=== PATIENT | male | born 1955 | race Hispanic/Latino ===

== ENCOUNTER 2021-06-28 19:41 | Inpatient (IN) | payer MEDICARE, OTHER ==
[~2021-06-28] VITALS: Ht 185.4 cm; Wt 79.1 kg
[2021-06-28 20:02] LABS: ABG BASE EXCESS -2.6 mmol/L (-2.0-3.0); ABG HCO3 19.3 mmol/L (21.0-28.0); ABG OXYGEN SATURATION 93.9 % (95.0-99.0); ABG PCO2 25 mmHg (35-48)
[2021-06-28 20:20] LABS: BASOPHILS % (AUTO) 0.1 % (0.0-5.0); HEMATOCRIT 28.4 % (42-54); LYMPHOCYTES % (AUTO) 2.9 % (21.0-51.0); MEAN CORPUSCULAR HEMOGLOBIN 31.1 pg (27.0-33.0); MEAN CORPUSCULAR HGB CONC 34.9 g/dL (32.0-36.0); MEAN CORPUSCULAR VOLUME 89.3 fL (79-99); NEUTROPHILS % (AUTO) 89.3 % (40.0-77.0); PLATELET COUNT (AUTO) 56 K/uL (130-400); RED BLOOD CELL COUNT(AUTO) 3.18 MIL/uL (4.50-6.20); WHITE BLOOD COUNT (AUTO) 14.1 K/uL (4.8-10.8)
[2021-06-28] MEDS ORDERED: ZOSYN 3.375GM +NS 50ML IV ONE (20:30)
[2021-06-28] MEDS ORDERED: TETANUS/DIPHTHERIA TOXOID [ADULT] 0.5 ML VIAL IM ONE (20:30)
[2021-06-28 20:38] LABS: B-TYPE NATRIURETIC PEPTIDE 255 pg/mL (0-100)
[2021-06-28 20:48] LABS: APPEARANCE,URINE Clear (CLEAR); BILIRUBIN,URINE Small (NEGATIVE); COLOR,URINE Dark Yellow (YELLOW); GLUCOSE, URINE (UA) Negative (NEGATIVE); KETONES,URINE Negative (NEGATIVE); LEUKOCYTE ESTERASE ,URINE Small (NEGATIVE); NITRATE,URINE Negative (NEGATIVE); OCCULT BLOOD,URINE Large (NEGATIVE); PH,URINE 5.5 (5.0-8.0); PROTEIN,URINE POS 1+ mg/dL (NEGATIVE)
[2021-06-28 20:53] LABS: PLATELET MORPHOLOGY COMMENT DECREASED
[2021-06-28 20:54] LABS: CARBON DIOXIDE 24 mmol/L (21-32); CHLORIDE 103 mmol/L (101-111); CREATININE 1.3 mg/dL (0.5-1.5); GLOMERULAR FILTR. RATE CALC 59 mL/min (>60); GLUCOSE,RANDOM 124 mg/dL (70-105); POTASSIUM 3.1 mmol/L (3.5-5.1); SODIUM SERUM 136 mmol/L (136-145); UREA NITROGEN, BLOOD 21 mg/dL (7-18)
[2021-06-28 20:56] LABS: AMPHET/METH SCREEN,URINE NEGATIVE (NEGATIVE); BARBITURATE SCREEN, URINE NEGATIVE (NEGATIVE); BENZODIAZEPINES SCREEN,URINE NEGATIVE (NEGATIVE); CANNABINOID SCREEN,URINE NEGATIVE (NEGATIVE); COCAINE SCREEN,URINE POSITIVE (NEGATIVE); OPIATE SCREEN,URINE NEGATIVE (NEGATIVE); PHENCYCLIDINE SCREEN,URINE NEGATIVE (NEGATIVE)
[2021-06-28 21:02] LABS: BACTERIA,URINE Few /HPF (None Seen); SQUAMOUS EPITHELIAL CELL,UR Few /HPF (0-2)
[2021-06-28 21:04] LABS: TRANSITIONAL EPI CELLS,URINE Rare /HPF (None Seen)
[2021-06-28 21:09] LABS: ALANINE AMINOTRANSFERASE 21 U/L (12-78); ALBUMIN 2.5 g/dL (3.5-5.0); ALCOHOL, BLOOD 4 mg/dL (0-10); AMMONIA 30 umol/L (11-32); ASPARTATE AMINOTRANSFERASE 35 U/L (10-37); BILIRUBIN,TOTAL 3.6 mg/dL (0.2-1.0); TOTAL PROTEIN, SERUM 6.7 g/dL (6.0-8.3)
[2021-06-28 21:18] LABS: ACETAMINOPHEN < 1 mcg/mL (10-29); SALICYLATE < 2.8 mg/dL (2.8-20.0)
[2021-06-28] MEDS ORDERED: MORPHINE 4 MG SYG IV PRN (23:30)
[2021-06-28] MEDS ORDERED: PANTOPRAZOLE 40 MG/VIAL IVP ONE (23:30)
[2021-06-28] MEDS ORDERED: POTASSIUM CHLORIDE 20MEQ/100ML 100 ML IV PRN (23:30)
[2021-06-28] MEDS ORDERED: ONDANSETRON 4MG INJ IV PRN (23:30)
[2021-06-28] MEDS: 0.9%NACL 1000ML 1,000 ML IV SCH (23:30)
[2021-06-28] MEDS ORDERED: HYDROCODONE/ACETAMINOPHEN 5/325 MG TAB PO PRN (23:30)
[2021-06-28] MEDS ORDERED: 0.9%NACL 1000ML 2,397 ML IV ONE (23:30)
[2021-06-28] MEDS ORDERED: LIDOCAINE HCL-MPF 1% 2ML VIAL IV PRN (23:30)
[2021-06-28] MEDS ORDERED: 0.9%NACL 1000ML 1,000 ML IV ONE (23:30)
[2021-06-28] MEDS: ACETAMINOPHEN 325 MG TAB PO PRN (23:45)
[2021-06-28] MEDS: POTASSIUM CHLORIDE 10% ELIXIR 20 MEQ/15 ML UDCUP PO PRN (23:56)
[2021-06-29] MEDS: IPRATROPIUM/ALBUTEROL SULFATE 3 ML SOLUTION IH SCH ×5 (00:04→23:28)
[2021-06-29] MEDS: KCL 20 MEQ ERTAB PO PRN ×2 (02:20→04:01)
[2021-06-29] MEDS: ZOSYN 3.375GM+NS 50ML 50 ML IV SCH ×2 (05:06→13:00)
[2021-06-29 05:29] LABS: BASOPHILS % (AUTO) 0.1 % (0.0-5.0); HEMATOCRIT 27.5 % (42-54); LYMPHOCYTES % (AUTO) 4.5 % (21.0-51.0); MEAN CORPUSCULAR HEMOGLOBIN 30.2 pg (27.0-33.0); MEAN CORPUSCULAR HGB CONC 32.7 g/dL (32.0-36.0); MEAN CORPUSCULAR VOLUME 92.3 fL (79-99); MONOCYTES % (AUTO) 6.1 % (3.0-13.0); NEUTROPHILS % (AUTO) 88.6 % (40.0-77.0); PLATELET COUNT (AUTO) 46 K/uL (130-400); RED BLOOD CELL COUNT(AUTO) 2.98 MIL/uL (4.50-6.20); RED CELL DISTRIBUTION WIDTH 16.7 % (11.0-15.5); WHITE BLOOD COUNT (AUTO) 10.6 K/uL (4.8-10.8)
[2021-06-29 05:57] LABS: POTASSIUM 3.5 mmol/L (3.5-5.1)
[2021-06-29 06:48] LABS: CREATININE 1.2 mg/dL (0.5-1.5)
[2021-06-29 07:03] LABS: ALBUMIN 2.1 g/dL (3.5-5.0); BILIRUBIN,TOTAL 2.7 mg/dL (0.2-1.0)
[2021-06-29] MEDS: 0.9%NACL 1000ML 1,000 ML IV SCH (08:46)
[2021-06-29] MEDS: PANTOPRAZOLE 40 MG/VIAL IVP SCH (08:46)
[2021-06-29] MEDS ORDERED: ENOXAPARIN SODIUM 40 MG/0.4 ML SYRINGE SQ SCH (09:00)
[2021-06-29] MEDS ORDERED: LORAZEPAM 2 MG/ML 1 ML VIAL ONE (10:17)
[2021-06-29] MEDS ORDERED: LORAZEPAM 2 MG/ML 1 ML VIAL IVP ONE (10:30)
[2021-06-29] MEDS ORDERED: PHARMACY COMMUNICATION MISC PRN (10:30)
[2021-06-29] MEDS: THIAMINE HCL 100 MG, FOLIC ACID 1 MG, M.V.I. IV [ADULT] 10 ML in 0.9%NACL 1000ML 1,000 ML IV SCH (10:44)
[2021-06-29 11:15] VITALS: BP 108/53
[2021-06-29] MEDS ORDERED: VANCOMYCIN PROTOCOL PER PHARMACY IV SCH (12:30)
[2021-06-29] MEDS ORDERED: COMPOUND IV REFRIGERATED 1 EACH IVSOLN MISC PRN (12:30)
[2021-06-29] MEDS ORDERED: VANCOMYCIN 1.25GM/NS 250ML IVPB SCH ×2 (13:00)
[2021-06-29] MEDS: LORAZEPAM 2 MG/ML 1 ML VIAL IVP PRN ×2 (16:08→20:51)
[2021-06-29] MEDS: GUAIFENESIN-DM 200/20 MG 10 ML PO PRN (20:47)
[2021-06-29] MEDS: NEOMY SULF/BACITRAC ZN/POLY OINT 30GM TUBE TP SCH (20:47)
[2021-06-29] MEDS: LACTULOSE 20 GM/30 ML UDCUP PO SCH (20:47)
[2021-06-29] MEDS: VANCOMYCIN 1G 1.25 GM in 0.9% NACL 250ML 250 ML IVPB SCH (20:49)
[2021-06-29 21:06] VITALS: BP 117/63
[2021-06-29] MEDS: ACETYLCYSTEINE 20% 200MG/ML 4ML VIAL IH SCH (23:28)
[2021-06-30] MEDS: ZOSYN 3.375GM+NS 50ML 50 ML IV SCH ×3 (00:13→17:24)
[2021-06-30] MEDS: ACETAMINOPHEN 325 MG TAB PO PRN (00:13)
[2021-06-30 00:54] VITALS: BP 129/66
[2021-06-30] MEDS: LORAZEPAM 2 MG/ML 1 ML VIAL IVP PRN ×2 (01:12→16:33)
[2021-06-30] MEDS: LACTULOSE 20 GM/30 ML UDCUP PO SCH ×4 (01:53→20:51)
[2021-06-30 04:00] VITALS: BP 92/62
[2021-06-30] MEDS: ACETYLCYSTEINE 20% 200MG/ML 4ML VIAL IH SCH ×3 (06:14→17:14)
[2021-06-30] MEDS: IPRATROPIUM/ALBUTEROL SULFATE 3 ML SOLUTION IH SCH ×3 (06:14→17:14)
[2021-06-30 06:41] LABS: BASOPHILS % (AUTO) 0.2 % (0.0-5.0); EOSINOPHILS % (AUTO) 0.2 % (0.0-8.0); HEMATOCRIT 29.3 % (42-54); MEAN CORPUSCULAR HEMOGLOBIN 30.2 pg (27.0-33.0); MEAN CORPUSCULAR HGB CONC 32.8 g/dL (32.0-36.0); MEAN CORPUSCULAR VOLUME 92.1 fL (79-99); MONOCYTES % (AUTO) 7.9 % (3.0-13.0); NEUTROPHILS % (AUTO) 84.8 % (40.0-77.0); PLATELET COUNT (AUTO) 52 K/uL (130-400); RED BLOOD CELL COUNT(AUTO) 3.18 MIL/uL (4.50-6.20); RED CELL DISTRIBUTION WIDTH 16.6 % (11.0-15.5); WHITE BLOOD COUNT (AUTO) 11.2 K/uL (4.8-10.8)
[2021-06-30 07:16] LABS: CREATININE 1.2 mg/dL (0.5-1.5); CRP QUANTITATIVE 129.4 mg/L (0.00-9.0); POTASSIUM 3.2 mmol/L (3.5-5.1)
[2021-06-30 07:51] VITALS: BP 123/65
[2021-06-30] MEDS: PANTOPRAZOLE 40 MG/VIAL IVP SCH (09:33)
[2021-06-30] MEDS: FOLIC ACID 1 MG TABLET PO SCH (09:33)
[2021-06-30] MEDS: THIAMINE HCL 100 MG/ML 2ML VIAL IM SCH (09:34)
[2021-06-30] MEDS: NEOMY SULF/BACITRAC ZN/POLY OINT 30GM TUBE TP SCH ×2 (09:34→20:57)
[2021-06-30] MEDS: VANCOMYCIN 1G 1.25 GM in 0.9% NACL 250ML 250 ML IVPB SCH ×2 (09:36→20:53)
[2021-06-30 11:16] VITALS: BP 111/72
[2021-06-30] MEDS: THIAMINE HCL 100 MG, FOLIC ACID 1 MG, M.V.I. IV [ADULT] 10 ML in 0.9%NACL 1000ML 1,000 ML IV SCH (12:55)
[2021-06-30] MEDS: POTASSIUM CHLORIDE 10% ELIXIR 20 MEQ/15 ML UDCUP PO PRN ×3 (13:10→23:03)
[2021-06-30] MEDS: CHLORDIAZEPOXIDE HCL 25 MG CAP PO PRN (16:45)
[2021-06-30 16:59] VITALS: BP 130/98
[2021-06-30] MEDS ORDERED: RACEPINEPHRINE HCL 2.25% 0.5 ML NEB SOLN NEB PRN (18:00)
[2021-06-30 20:00] VITALS: BP 114/83
[2021-06-30] MEDS: GUAIFENESIN-DM 200/20 MG 10 ML PO PRN (20:51)
[2021-07-01] VITALS (8 sets, daily range): BP systolic 96–145; BP diastolic 65–79
[2021-07-01] MEDS: IPRATROPIUM/ALBUTEROL SULFATE 3 ML SOLUTION IH SCH ×4 (00:13→18:57)
[2021-07-01] MEDS: ACETYLCYSTEINE 20% 200MG/ML 4ML VIAL IH SCH ×4 (00:13→18:57)
[2021-07-01] MEDS: GUAIFENESIN-DM 200/20 MG 10 ML PO PRN ×3 (01:02→19:58)
[2021-07-01] MEDS: ZOSYN 3.375GM+NS 50ML 50 ML IV SCH ×3 (01:02→17:14)
[2021-07-01] MEDS: LACTULOSE 20 GM/30 ML UDCUP PO SCH ×4 (01:02→19:58)
[2021-07-01 04:58] LABS: HEMATOCRIT 28.8 % (42-54); MEAN CORPUSCULAR HEMOGLOBIN 30.7 pg (27.0-33.0); MEAN CORPUSCULAR HGB CONC 33.7 g/dL (32.0-36.0); MEAN CORPUSCULAR VOLUME 91.1 fL (79-99); RED BLOOD CELL COUNT(AUTO) 3.16 MIL/uL (4.50-6.20); RED CELL DISTRIBUTION WIDTH 16.2 % (11.0-15.5); WHITE BLOOD COUNT (AUTO) 11.9 K/uL (4.8-10.8)
[2021-07-01 05:14] LABS: CREATININE 1.2 mg/dL (0.5-1.5); CRP QUANTITATIVE 111.9 mg/L (0.00-9.0); POTASSIUM 3.4 mmol/L (3.5-5.1)
[2021-07-01] MEDS: POTASSIUM CHLORIDE 10% ELIXIR 20 MEQ/15 ML UDCUP PO PRN ×2 (06:07→19:58)
[2021-07-01] MEDS: PANTOPRAZOLE 40 MG/VIAL IVP SCH (09:47)
[2021-07-01] MEDS: THIAMINE HCL 100 MG/ML 2ML VIAL IM SCH (09:47)
[2021-07-01] MEDS: FOLIC ACID 1 MG TABLET PO SCH (09:48)
[2021-07-01] MEDS: NEOMY SULF/BACITRAC ZN/POLY OINT 30GM TUBE TP SCH ×2 (09:51→19:59)
[2021-07-01] MEDS: VANCOMYCIN 1G 1.25 GM in 0.9% NACL 250ML 250 ML IVPB SCH ×2 (09:54→19:59)
[2021-07-01] MEDS: THIAMINE HCL 100 MG, FOLIC ACID 1 MG, M.V.I. IV [ADULT] 10 ML in 0.9%NACL 1000ML 1,000 ML IV SCH (13:10)
[2021-07-01] MEDS: CHLORDIAZEPOXIDE HCL 25 MG CAP PO PRN (17:00)
[2021-07-01] MEDS: LORAZEPAM 2 MG/ML 1 ML VIAL IVP PRN (21:37)
[2021-07-01] MEDS ORDERED: DILTIAZEM 50MG VIAL IV ONE (22:47)
[2021-07-01] MEDS: ACETAMINOPHEN 325 MG TAB PO PRN (22:58)
[2021-07-01] MEDS ORDERED: DILTIAZEM 25MG INJ IVP ONE (23:00)
[2021-07-01] MEDS: DILTIAZEM 125MG+100 ML NS 125 ML IV SCH (23:27)
[2021-07-02] MEDS: ZOSYN 3.375GM+NS 50ML 50 ML IV SCH ×3 (01:13→17:07)
[2021-07-02] MEDS: LACTULOSE 20 GM/30 ML UDCUP PO SCH ×4 (01:14→19:30)
[2021-07-02 03:34] VITALS: BP 116/73
[2021-07-02 05:02] LABS: HEMATOCRIT 30.1 % (42-54); MEAN CORPUSCULAR HEMOGLOBIN 29.8 pg (27.0-33.0); MEAN CORPUSCULAR HGB CONC 32.6 g/dL (32.0-36.0); MEAN CORPUSCULAR VOLUME 91.5 fL (79-99); RED BLOOD CELL COUNT(AUTO) 3.29 MIL/uL (4.50-6.20); RED CELL DISTRIBUTION WIDTH 16.3 % (11.0-15.5); WHITE BLOOD COUNT (AUTO) 14.2 K/uL (4.8-10.8)
[2021-07-02 05:16] LABS: CREATININE 1.4 mg/dL (0.5-1.5); CRP QUANTITATIVE 79.3 mg/L (0.00-9.0); POTASSIUM 4.1 mmol/L (3.5-5.1)
[2021-07-02 07:00] VITALS: BP 106/44
[2021-07-02] MEDS: ACETYLCYSTEINE 20% 200MG/ML 4ML VIAL IH SCH ×3 (07:00→20:29)
[2021-07-02] MEDS: IPRATROPIUM/ALBUTEROL SULFATE 3 ML SOLUTION IH SCH ×3 (07:00→20:28)
[2021-07-02] MEDS: NEOMY SULF/BACITRAC ZN/POLY OINT 30GM TUBE TP SCH ×2 (07:47→20:58)
[2021-07-02] MEDS: FOLIC ACID 1 MG TABLET PO SCH (08:54)
[2021-07-02] MEDS: PANTOPRAZOLE 40 MG/VIAL IVP SCH (08:54)
[2021-07-02] MEDS: THIAMINE HCL 100 MG/ML 2ML VIAL IM SCH (08:55)
[2021-07-02 11:00] VITALS: BP 123/72
[2021-07-02] MEDS: VANCOMYCIN 1G 1.25 GM in 0.9% NACL 250ML 250 ML IVPB SCH ×2 (12:34→20:58)
[2021-07-02 12:45] LABS: % IRON SATURATION 32.3 % (30-44)
[2021-07-02] MEDS: DILTIAZEM 125MG+100 ML NS 125 ML IV SCH (13:38)
[2021-07-02] MEDS: LORAZEPAM 2 MG/ML 1 ML VIAL IVP PRN (13:42)
[2021-07-02 15:00] VITALS: BP 108/76
[2021-07-02] MEDS ORDERED: COMPOUND IV MISC 1 EACH IVSOLN MISC PRN (15:30)
[2021-07-02 19:55] VITALS: BP 135/72
[2021-07-02 23:15] VITALS: BP 114/62
[2021-07-03] MEDS: IPRATROPIUM/ALBUTEROL SULFATE 3 ML SOLUTION IH SCH ×2 (01:04→06:23)
[2021-07-03] MEDS: ACETYLCYSTEINE 20% 200MG/ML 4ML VIAL IH SCH ×5 (01:05→23:40)
[2021-07-03] MEDS: LACTULOSE 20 GM/30 ML UDCUP PO SCH ×4 (01:13→19:30)
[2021-07-03] MEDS: ZOSYN 3.375GM+NS 50ML 50 ML IV SCH ×3 (01:13→17:37)
[2021-07-03 04:00] VITALS: BP 138/66
[2021-07-03 07:47] VITALS: BP 126/68
[2021-07-03] MEDS: VANCOMYCIN 1G 1.25 GM in 0.9% NACL 250ML 250 ML IVPB SCH (09:00)
[2021-07-03] MEDS: NEOMY SULF/BACITRAC ZN/POLY OINT 30GM TUBE TP SCH ×2 (09:00→21:35)
[2021-07-03] MEDS: PANTOPRAZOLE 40 MG/VIAL IVP SCH (09:17)
[2021-07-03] MEDS: IRON SUCROSE COMPLEX 300 MG in 0.9%NACL 50ML 50 ML IV SCH (10:19)
[2021-07-03] MEDS: IPRATROPIUM/ALBUTEROL SULFATE 3 ML SOLUTION IH PRN ×3 (11:07→23:40)
[2021-07-03 12:02] VITALS: BP 120/53
[2021-07-03] MEDS: DILTIAZEM 180MG SR CAP PO SCH (12:20)
[2021-07-03 16:00] VITALS: BP 127/58
[2021-07-03 19:00] VITALS: BP 107/74
[2021-07-03] MEDS: VANCOMYCIN 1G/250ML KIT 250 ML IV SCH (21:32)
[2021-07-03 23:00] VITALS: BP 113/70
[2021-07-04] MEDS: DILTIAZEM 125MG+100 ML NS 125 ML IV SCH (00:03)
[2021-07-04] MEDS: ZOSYN 3.375GM+NS 50ML 50 ML IV SCH ×3 (00:08→16:06)
[2021-07-04] MEDS: LORAZEPAM 2 MG/ML 1 ML VIAL IVP PRN ×2 (00:08→14:28)
[2021-07-04] MEDS: LACTULOSE 20 GM/30 ML UDCUP PO SCH ×4 (00:13→20:56)
[2021-07-04 03:00] VITALS: BP 117/64
[2021-07-04] MEDS: IPRATROPIUM/ALBUTEROL SULFATE 3 ML SOLUTION IH PRN ×4 (06:36→23:30)
[2021-07-04] MEDS: ACETYLCYSTEINE 20% 200MG/ML 4ML VIAL IH SCH ×4 (06:36→23:30)
[2021-07-04] MEDS ORDERED: 0.9%NACL 50ML 50 ML IV ONE ×2 (07:37→16:04)
[2021-07-04] MEDS: PANTOPRAZOLE 40 MG/VIAL IVP SCH (07:42)
[2021-07-04] MEDS: VANCOMYCIN 1G/250ML KIT 250 ML IV SCH ×2 (07:42→20:56)
[2021-07-04] MEDS: IRON SUCROSE COMPLEX 300 MG in 0.9%NACL 50ML 50 ML IV SCH (07:42)
[2021-07-04] MEDS: NEOMY SULF/BACITRAC ZN/POLY OINT 30GM TUBE TP SCH ×2 (07:43→21:11)
[2021-07-04] MEDS: DILTIAZEM 180MG SR CAP PO SCH (07:47)
[2021-07-04 08:08] VITALS: BP 117/69
[2021-07-04 09:53] LABS: BASOPHILS % (AUTO) 0.4 % (0.0-5.0); EOSINOPHILS % (AUTO) 2.7 % (0.0-8.0); LYMPHOCYTES % (AUTO) 8.2 % (21.0-51.0); MEAN CORPUSCULAR HEMOGLOBIN 30.7 pg (27.0-33.0); MEAN CORPUSCULAR HGB CONC 32.4 g/dL (32.0-36.0); MEAN CORPUSCULAR VOLUME 94.8 fL (79-99); MONOCYTES % (AUTO) 7.2 % (3.0-13.0); NEUTROPHILS % (AUTO) 80.6 % (40.0-77.0); PLATELET COUNT (AUTO) 64 K/uL (130-400); RED BLOOD CELL COUNT(AUTO) 3.06 MIL/uL (4.50-6.20); RED CELL DISTRIBUTION WIDTH 16.7 % (11.0-15.5); WHITE BLOOD COUNT (AUTO) 11.3 K/uL (4.8-10.8)
[2021-07-04 10:02] LABS: CREATININE 1.7 mg/dL (0.5-1.5); POTASSIUM 3.4 mmol/L (3.5-5.1)
[2021-07-04 10:07] LABS: BILIRUBIN,TOTAL 1.8 mg/dL (0.2-1.0); TOTAL PROTEIN, SERUM 6.3 g/dL (6.0-8.3)
[2021-07-04 12:00] VITALS: BP_SYST 119; BP_SYST 129; BP_DIAS 69; BP_DIAS 80
[2021-07-04] MEDS ORDERED: KCL 20 MEQ ERTAB PO PRN (13:30)
[2021-07-04] MEDS ORDERED: POTASSIUM CHLORIDE 10% ELIXIR 20 MEQ/15 ML UDCUP PO PRN (13:30)
[2021-07-04] MEDS ORDERED: POTASSIUM CHLORIDE 20MEQ/100ML 100 ML IV PRN (13:30)
[2021-07-04] MEDS ORDERED: LIDOCAINE HCL-MPF 1% 2ML VIAL IV PRN (13:30)
[2021-07-04 15:50] VITALS: BP 118/64
[2021-07-04] MEDS: CHLORDIAZEPOXIDE HCL 25 MG CAP PO PRN (17:07)
[2021-07-04 19:00] VITALS: BP 123/63
[2021-07-04] MEDS ORDERED: 0.9% NACL 250ML 250 ML ONE (20:53)
[2021-07-04 23:00] VITALS: BP 120/64
[2021-07-05] MEDS: LORAZEPAM 2 MG/ML 1 ML VIAL IVP PRN (00:30)
[2021-07-05] MEDS: ZOSYN 3.375GM+NS 50ML 50 ML IV SCH ×3 (00:36→16:26)
[2021-07-05] MEDS: LACTULOSE 20 GM/30 ML UDCUP PO SCH ×4 (00:37→21:27)
[2021-07-05 03:00] VITALS: BP 128/63
[2021-07-05 03:43] LABS: BASOPHILS % (AUTO) 0.5 % (0.0-5.0); EOSINOPHILS % (AUTO) 3.7 % (0.0-8.0); HEMATOCRIT 28.6 % (42-54); LYMPHOCYTES % (AUTO) 9.3 % (21.0-51.0); MEAN CORPUSCULAR HEMOGLOBIN 29.8 pg (27.0-33.0); MEAN CORPUSCULAR HGB CONC 31.1 g/dL (32.0-36.0); MEAN CORPUSCULAR VOLUME 95.7 fL (79-99); MONOCYTES % (AUTO) 8.2 % (3.0-13.0); NEUTROPHILS % (AUTO) 77.5 % (40.0-77.0); PLATELET COUNT (AUTO) 67 K/uL (130-400); RED BLOOD CELL COUNT(AUTO) 2.99 MIL/uL (4.50-6.20); RED CELL DISTRIBUTION WIDTH 17.2 % (11.0-15.5); WHITE BLOOD COUNT (AUTO) 8.4 K/uL (4.8-10.8)
[2021-07-05 04:02] LABS: ALBUMIN 1.9 g/dL (3.5-5.0); BILIRUBIN,TOTAL 1.7 mg/dL (0.2-1.0); CREATININE 1.6 mg/dL (0.5-1.5); POTASSIUM 3.5 mmol/L (3.5-5.1); TOTAL PROTEIN, SERUM 6.4 g/dL (6.0-8.3)
[2021-07-05] MEDS: IPRATROPIUM/ALBUTEROL SULFATE 3 ML SOLUTION IH PRN ×4 (06:14→23:59)
[2021-07-05] MEDS: ACETYLCYSTEINE 20% 200MG/ML 4ML VIAL IH SCH ×2 (06:14→11:25)
[2021-07-05 07:00] VITALS: BP 98/54
[2021-07-05] MEDS: VANCOMYCIN 1G/250ML KIT 250 ML IV SCH (09:00)
[2021-07-05] MEDS ORDERED: DILTIAZEM 120MG SR CAP PO SCH (09:00)
[2021-07-05] MEDS ORDERED: 0.9%NACL 50ML 50 ML IV ONE ×2 (09:53→16:23)
[2021-07-05] MEDS: IRON SUCROSE COMPLEX 300 MG in 0.9%NACL 50ML 50 ML IV SCH (09:56)
[2021-07-05] MEDS: PANTOPRAZOLE 40 MG/VIAL IVP SCH (10:19)
[2021-07-05] MEDS: NEOMY SULF/BACITRAC ZN/POLY OINT 30GM TUBE TP SCH ×2 (10:24→21:28)
[2021-07-05] MEDS: DILTIAZEM 180MG SR CAP PO SCH (10:29)
[2021-07-05 11:00] VITALS: BP 111/54
[2021-07-05 16:50] VITALS: BP 99/60
[2021-07-05 19:45] VITALS: BP 108/54
[2021-07-06 00:30] VITALS: BP 113/54
[2021-07-06] MEDS: ZOSYN 3.375GM+NS 50ML 50 ML IV SCH ×2 (01:30→09:46)
[2021-07-06] MEDS: LACTULOSE 20 GM/30 ML UDCUP PO SCH ×3 (02:01→11:58)
[2021-07-06 03:30] VITALS: BP 122/66
[2021-07-06] MEDS: IPRATROPIUM/ALBUTEROL SULFATE 3 ML SOLUTION IH PRN ×2 (06:32→11:07)
[2021-07-06 07:00] VITALS: BP 107/49
[2021-07-06 07:33] LABS: BASOPHILS % (AUTO) 0.8 % (0.0-5.0); EOSINOPHILS % (AUTO) 4.5 % (0.0-8.0); HEMATOCRIT 30.3 % (42-54); LYMPHOCYTES % (AUTO) 11.4 % (21.0-51.0); MEAN CORPUSCULAR HEMOGLOBIN 30.5 pg (27.0-33.0); MEAN CORPUSCULAR VOLUME 98.4 fL (79-99); MONOCYTES % (AUTO) 8.8 % (3.0-13.0); NEUTROPHILS % (AUTO) 73.5 % (40.0-77.0); PLATELET COUNT (AUTO) 54 K/uL (130-400); RED BLOOD CELL COUNT(AUTO) 3.08 MIL/uL (4.50-6.20); RED CELL DISTRIBUTION WIDTH 17.9 % (11.0-15.5); WHITE BLOOD COUNT (AUTO) 6.2 K/uL (4.8-10.8)
[2021-07-06 07:48] LABS: ALBUMIN 1.9 g/dL (3.5-5.0); BILIRUBIN,TOTAL 1.8 mg/dL (0.2-1.0); CREATININE 1.7 mg/dL (0.5-1.5); POTASSIUM 3.6 mmol/L (3.5-5.1); TOTAL PROTEIN, SERUM 6.6 g/dL (6.0-8.3)
[2021-07-06 07:51] LABS: PLATELET MORPHOLOGY COMMENT DECREASED
[2021-07-06] MEDS ORDERED: 0.9%NACL 50ML 50 ML IV ONE (09:45)
[2021-07-06] MEDS: PANTOPRAZOLE 40 MG/VIAL IVP SCH (09:47)
[2021-07-06] MEDS: DILTIAZEM 180MG SR CAP PO SCH (09:48)
[2021-07-06] MEDS: NEOMY SULF/BACITRAC ZN/POLY OINT 30GM TUBE TP SCH (09:48)
[2021-07-06 11:00] VITALS: BP 114/52
== END 2021-07-06 15:15 | DRG 871 ==
LOC: EDH 19:41 → EDBD 19:42 → EDHIP 19:42 → UNDOADMIN 23:08 → 4DH 06-29 10:34 → 4CH 07-01 14:13 → 2DH 07-01 23:25
PROVIDERS: ADMIT Hospitalist; ATTEND Hospitalist
PROC: 0HDQXZZ Extraction of Finger Nail, External Approach (ICD-10-PCS; principal; 2021-07-01)
DX: A41.02 Sepsis due to Methicillin resistant Staphylococcus aureus (principal); J15.212 Pneumonia due to Methicillin resistant Staphylococcus aureus; J15.0 Pneumonia due to Klebsiella pneumoniae; G92.8 Other toxic encephalopathy; J44.0 Chronic obstructive pulmonary disease with (acute) lower respiratory infection; E87.4 Mixed disorder of acid-base balance; L02.413 Cutaneous abscess of right upper limb; M62.82 Rhabdomyolysis; N17.9 Acute kidney failure, unspecified; N39.0 Urinary tract infection, site not specified; F10.239 Alcohol dependence with withdrawal, unspecified; L02.511 Cutaneous abscess of right hand; M00.9 Pyogenic arthritis, unspecified; I31.3 Pericardial effusion (noninflammatory); L03.113 Cellulitis of right upper limb; M86.8X4 Other osteomyelitis, hand; E86.9 Volume depletion, unspecified; Z20.822 Contact with and (suspected) exposure to COVID-19; E87.6 Hypokalemia; I12.9 Hypertensive chronic kidney disease with stage 1 through stage 4 chronic kidney disease, or unspecified chronic kidney disease; D50.9 Iron deficiency anemia, unspecified; D69.6 Thrombocytopenia, unspecified; F14.10 Cocaine abuse, uncomplicated; F17.210 Nicotine dependence, cigarettes, uncomplicated; S61.001A Unspecified open wound of right thumb without damage to nail, initial encounter; I48.0 Paroxysmal atrial fibrillation; K80.20 Calculus of gallbladder without cholecystitis without obstruction; N18.9 Chronic kidney disease, unspecified; K70.30 Alcoholic cirrhosis of liver without ascites; R62.7 Adult failure to thrive; E80.6 Other disorders of bilirubin metabolism; R16.1 Splenomegaly, not elsewhere classified; D64.9 Anemia, unspecified; F19.10 Other psychoactive substance abuse, uncomplicated; Z79.899 Other long term (current) drug therapy; Z68.23 Body mass index [BMI] 23.0-23.9, adult; Z91.19 Patient's noncompliance with other medical treatment and regimen; X58.XXXA Exposure to other specified factors, initial encounter; Y93.89 Activity, other specified; Y92.89 Other specified places as the place of occurrence of the external cause; Y99.8 Other external cause status
CPT/HCPCS: 36415; 36600; 70450; 71045; 73140; 74230; 76705; 80048; 80053; 80202; 80305; 81001; 82040; 82140; 82270; 82435; 82550; 82803; 82947; 83540; 83550; 83605; 83630; 83880; 84132; 84145; 84295; 84484; 85018; 85025; 85027; 86140; 87040; 87070; 87071; 87076; 87077; 87088; 87186; 87205; 87635; 87804; 90714; 92526; 92610; 92611; 93005; 93306; 94640; 94664; 94667; 94668; C9113; C9803; G0378; G0481; J1756; J2060; J2543; J3370; J3411; J3490; J7030; J7050; J7608